=== PATIENT | male | born 1970 | race Caucasian/White ===

== ENCOUNTER 2016-10-10 14:50 | Emergency (ER) | payer BC ==
--- NOTE | 2016-10-10 15:26 | ED ---
General Adult HPI - General Chief complaint: Chest Pain Stated complaint: Chest Pain Time Seen by Provider: 10/10/16 14:59 Source: patient, RN notes reviewed Mode of arrival: ambulatory Limitations: no limitations - History of Present Illness Initial comments: Patient 46-year-old male who presents emergency room today with a chief complaint of left-sided rib pain. Patient does admit that he was playing softball 2 days ago and collided with another player. He states he collided on the left side of his ribs. He states he did feel some pain to the area but was able to continue to play. He states the last 2 days he's noticed that patient be worse with certain movements. He gives examples that when he coughs or sneezes that the pain is increased. States worse with movements. Patient does admit that he went to his family doctor about this today. States that they repeated an EKG and sent him here for evaluation. Patient denies any other complaints. Patient denies any recent fever, chills, shortness of breath, chest pain, back pain, abdominal pain, nausea or vomiting, numbness or tingling, dysuria or hematuria, constipation or diarrhea, headaches or visual changes, or any other complaints. - Related Data Previous Rx's Medication Instructions Recorded Hydrocodone/Acetaminophen [Warren 1 each PO Q6HR PRN #20 tab 10/10/16 5-325] Allergies Allergy/AdvReac Type Severity Reaction Status Date / Time morphine Allergy Nausea & Verified 10/10/16 15:36 Vomiting Penicillins Allergy Unknown Verified 10/10/16 15:36 Childhood Review of Systems ROS Statement: Those systems with pertinent positive or pertinent negative responses have been documented in the HPI. ROS Other: All systems not noted in ROS Statement are negative. Past Medical History Past Medical History: No Reported History History of Any Multi-Drug Resistant Organisms: None Reported Past Surgical History: Hernia Repair, Orthopedic Surgery Additional Past Surgical History / Comment(s): left shoulder, knee elbow Past Psychological History: No Psychological Hx Reported Smoking Status: Never smoker Past Alcohol Use History: None Reported Past Drug Use History: None Reported General Exam - General Exam Comments Initial Comments: General: The patient is awake and alert, in no distress, and does not appear acutely ill. Eye: Pupils are equal, round and reactive to light, extra-ocular movements are intact. No nystagmus. There is normal conjunctiva bilaterally. No signs of icterus. Ears, nose, mouth and throat: There are moist mucous membranes and no oral lesions. Neck: The neck is supple, there is no tenderness or JVD. Cardiovascular: There is a regular rate and rhythm. No murmur, rub or gallop is appreciated. Respiratory: Lungs are clear to auscultation, respirations are non-labored, breath sounds are equal. No wheezes, stridor, rales, or rhonchi. Gastrointestinal: Soft, non-distended, non-tender abdomen without masses or organomegaly noted. There is no rebound or guarding present. No CVA tenderness. Bowel sounds are unremarkable. Musculoskeletal: Normal ROM. No bruising or swelling. He is point tender to palpation in the left anterior lateral ribs. This does reproduce his pain. Strength 5/5. Sensation intact. Pulses equal bilaterally 2+. Neurological: A&O x 3. CN II-XII intact, There are no obvious motor or sensory deficits. Coordination appears grossly intact. Speech is normal. Skin: Skin is warm and dry and no rashes or lesions are noted. Psychiatric: Cooperative, appropriate mood & affect, normal judgment. Limitations: no limitations Course Vital Signs 10/10/16 14:52 Temperature 98.2 F Pulse Rate 65 Respiratory 18 Rate Blood Pressure 140/84 O2 Sat by Pulse 95 Oximetry EKG Findings - EKG Comments: EKG Findings:: EKG performed here today at 1509: A 12-lead EKG was performed and interpreted by me as showing the following: Rate is 63, and rhythm is normal sinus. There are normal QRS complexes and normal R-wave progression. ST segments have no elevation or depression, and SD segments appear normal. Previous EKG from outpatient was also reviewed and also an old EKG on 2010 from outpatient facility was also reviewed both showing normal sinus rhythm. All EKGs were reviewed with attending physician Medical Decision Making - Medical Decision Making X-rays reviewed and are negative. The emergency room. Patient's pain reproducible on palpation. Does admit to injury 2 days ago. Patient's EKG shows no changes. Patient will be discharged and advised to follow-up with family doctor. Advised return for any other concerns. Disposition Clinical Impression: Contusion of rib on left side Disposition: HOME SELF-CARE Condition: Good Instructions: Rib Contusion (ED) Additional Instructions: Please use medication as discussed. Please follow-up with family doctor in the next 2 days of symptoms have not improved. Please return to emergency room if the symptoms increase or worsen or for any other concerns. Prescriptions: Hydrocodone/Acetaminophen [Warren 5-325] 1 each PO Q6HR PRN #20 tab PRN Reason: Pain Referrals: Guille Heath MD [Primary Care Provider] - 1-2 days Time of Disposition: 16:07
--- NOTE | 2016-10-10 15:38 | XR ---
EXAMINATION TYPE: XR ribs LT w pa chest xray DATE OF EXAM: 10/10/2016 COMPARISON: October 18, 2009 HISTORY: Pain TECHNIQUE: Single view of the chest 4 views of the ribs are submitted. FINDINGS: The lungs are clear. There is no evidence for pneumothorax. No evidence for focal contusion. Mediastinal structures are midline. Evaluation of the ribs fails to demonstrate evidence for displaced rib fracture or secondary sign of rib fracture. Incidental focal eventration left hemidiaphragm. Scoliotic curvature of the lumbar spine convex to th e left. Postoperative changes left shoulder. IMPRESSION: 1. No significant abnormality seen. No displaced rib fracture identified.
[2016-10-10 16:20] VITALS: BP 137/86; PULSE 90; RESP 14; TEMP 97.9
== END 2016-10-10 16:20 | disposition home or self-care (01) ==
LOC: EC 14:50
DX: S20.212A Contusion of left front wall of thorax, initial encounter (principal); Z88.0 Allergy status to penicillin; Z88.5 Allergy status to narcotic agent; W51.XXXA Accidental striking against or bumped into by another person, initial encounter; Y93.64 Activity, baseball
CPT/HCPCS: 93005; 99284

== ENCOUNTER 2017-09-26 23:20 | Observation (INO) | payer BC ==
[2017-09-26] MEDS ORDERED: ONDANSETRON 4 MG/2 ML VIAL IVP STA (23:31)
[2017-09-26] MEDS ORDERED: NITROGLYCERIN OINT 1 INCH/GM PACKET TOPICAL STA (23:31)
[2017-09-26] MEDS ORDERED: HYDROmorphone 0.5 MG/0.5 ML SYRINGE IVP STA ×2 (23:31→23:58)
--- NOTE | 2017-09-26 23:35 | ED ---
General Adult HPI - General Chief complaint: Chest Pain Stated complaint: chest pain Time Seen by Provider: 09/26/17 23:20 Source: patient, RN notes reviewed Mode of arrival: wheelchair Limitations: no limitations - History of Present Illness Initial comments: Is a 47-year-old male presents emergency Department with no significant past medical history. Patient comes in complaining of epigastric and chest pressure. Patient states it started 2 hours prior to arrival and has gotten progressively worse. Patient states it radiates to his back. Patient states he became nauseous and vomited times one but did not seem to relieve the pain. Patient states pressing in the epigastric right upper quadrant is very tender. Patient denies any drinking. Patient denies any drug use. Patient denies headache patient denies numbness weakness. Patient denies lightheadedness dizziness or syncopal episode. - Related Data Home Medications Medication Instructions Recorded Confirmed Calcium Carbonate [Tums] 1,000 mg PO ONCE PRN 09/26/17 09/26/17 Allergies Allergy/AdvReac Type Severity Reaction Status Date / Time morphine Allergy Nausea & Verified 09/26/17 23:42 Vomiting Penicillins Allergy Unknown Verified 09/26/17 23:42 Childhood Review of Systems ROS Statement: Those systems with pertinent positive or pertinent negative responses have been documented in the HPI. ROS Other: All systems not noted in ROS Statement are negative. Past Medical History Past Medical History: No Reported History History of Any Multi-Drug Resistant Organisms: None Reported Past Surgical History: Hernia Repair, Orthopedic Surgery Additional Past Surgical History / Comment(s): left shoulder, knee elbow Past Psychological History: No Psychological Hx Reported Smoking Status: Never smoker Past Alcohol Use History: None Reported Past Drug Use History: None Reported General Exam - General Exam Comments Initial Comments: GENERAL: Patient is well-developed and well-nourished. Patient is nontoxic and well- hydrated and is in moderate distress. ENT: Neck is soft and supple. No significant lymphadenopathy is noted. Oropharynx is clear. Moist mucous membranes. Neck has full range of motion without eliciting any pain. EYES: The sclera were anicteric and conjunctiva were pink and moist. Extraocular movements were intact and pupils were equal round and reactive to light. Eyelids were unremarkable. PULMONARY: Unlabored respirations. Good breath sounds bilaterally. No audible rales rhonchi or wheezing was noted. CARDIOVASCULAR: There is a regular rate and rhythm without any murmurs gallops or rubs. ABDOMEN: Epigastric and right upper quadrant is very tender to palpation.. No palpable organomegaly was noted. There is no palpable pulsatile mass. SKIN: Skin is clear with no lesions or rashes and otherwise unremarkable. NEUROLOGIC: Patient is alert and oriented x3. Cranial nerves II through XII are grossly intact. Motor and sensory are also intact. Normal speech, volume and content. Symmetrical smile. MUSCULOSKELETAL: Normal extremities with adequate strength and full range of motion. No lower extremity swelling or edema. No calf tenderness. LYMPHATICS: No significant lymphadenopathy is noted PSYCHIATRIC: Normal psychiatric evaluation. Normal interpersonal interactions appears functionally intact in deals appropriately with others. No signs of depression. No signs of anxiety. Limitations: no limitations Course Vital Signs 09/26/17 09/26/17 09/27/17 23:22 23:53 00:02 Temperature 97.9 F Pulse Rate 82 56 L Pulse Rate [ 59 L Forensic Identification Specialist ] Respiratory 18 19 Rate Blood Pressure 136/92 126/85 O2 Sat by Pulse 98 96 Oximetry 09/27/17 01:20 Temperature Pulse Rate 70 Pulse Rate [ Forensic Identification Specialist ] Respiratory 19 Rate Blood Pressure 123/78 O2 Sat by Pulse 94 L Oximetry Medical Decision Making - Medical Decision Making EKG shows normal sinus rhythm at 61 bpm NE interval is 170 QRS is 96 Q-T intervals 44 QTC is 46. Patient's EKG shows no ST segment elevation or depression or T-wave abnormalities noted. EKG is compared to old EKG no acute changes noted. CAT scan of the abdomen shows an elevated left diaphragm as well as a very enlarged stomach. A previous CAT scan showed a possible arcuate ligament syndrome. Patient was still uncomfortable after the Dilaudid but did feel a little better. I ordered an NG tube. I spoke with Dr. Nelson she agreed to admit the patient I admitted the patient I continued pain medicine and nausea medicine on the floor - Lab Data Result diagrams: 09/26/17 23:39 09/26/17 23:39 Lab Results 09/26/17 09/26/17 09/26/17 Range/Units 23:39 23:39 23:39 WBC 9.7 (3.8-10.6) k/uL RBC 5.33 (4.30-5.90) m/uL Hgb 15.1 (13.0-17.5) gm/dL Hct 46.0 (39.0-53.0) % MCV 86.3 (80.0-100.0) fL MCH 28.4 (25.0-35.0) pg MCHC 32.9 (31.0-37.0) g/dL RDW 13.6 (11.5-15.5) % Plt Count 214 (150-450) k/uL Neutrophils % 62 % Lymphocytes % 28 % Monocytes % 6 % Eosinophils % 1 % Basophils % 0 % Neutrophils # 6.0 (1.3-7.7) k/uL Lymphocytes # 2.7 (1.0-4.8) k/uL Monocytes # 0.6 (0-1.0) k/uL Eosinophils # 0.1 (0-0.7) k/uL Basophils # 0.0 (0-0.2) k/uL PT (9.0-12.0) sec INR (<1.2) APTT (22.0-30.0) sec Sodium 141 (137-145) mmol/L Potassium 4.2 (3.5-5.1) mmol/L Chloride 105 (98-107) mmol/L Carbon Dioxide 23 (22-30) mmol/L Anion Gap 13 mmol/L BUN 20 (9-20) mg/dL Creatinine 1.10 (0.66-1.25) mg/dL Est GFR (CKD-EPI)AfAm >90 (>60 ml/min/1.73 sqM) Est GFR (CKD-EPI)NonAf 80 (>60 ml/min/1.73 sqM) Glucose 109 H (74-99) mg/dL Calcium 10.0 (8.4-10.2) mg/dL Magnesium 2.2 (1.6-2.3) mg/dL Total Bilirubin 0.3 (0.2-1.3) mg/dL AST 28 (17-59) U/L ALT 37 (21-72) U/L Alkaline Phosphatase 54 (38-126) U/L Total Creatine Kinase 450 H (55-170) U/L CK-MB (CK-2) 1.2 (0.0-2.4) ng/mL CK-MB (CK-2) Rel Index 0.3 Troponin I <0.012 (0.000-0.034) ng/mL Total Protein 7.2 (6.3-8.2) g/dL Albumin 4.6 (3.5-5.0) g/dL Amylase 50 (30-110) U/L Lipase 152 (23-300) U/L 09/26/17 Range/Units 23:39 WBC (3.8-10.6) k/uL RBC (4.30-5.90) m/uL Hgb (13.0-17.5) gm/dL Hct (39.0-53.0) % MCV (80.0-100.0) fL MCH (25.0-35.0) pg MCHC (31.0-37.0) g/dL RDW (11.5-15.5) % Plt Count (150-450) k/uL Neutrophils % % Lymphocytes % % Monocytes % % Eosinophils % % Basophils % % Neutrophils # (1.3-7.7) k/uL Lymphocytes # (1.0-4.8) k/uL Monocytes # (0-1.0) k/uL Eosinophils # (0-0.7) k/uL Basophils # (0-0.2) k/uL PT 9.8 (9.0-12.0) sec INR 1.0 (<1.2) APTT 20.9 L (22.0-30.0) sec Sodium (137-145) mmol/L Potassium (3.5-5.1) mmol/L Chloride (98-107) mmol/L Carbon Dioxide (22-30) mmol/L Anion Gap mmol/L BUN (9-20) mg/dL Creatinine (0.66-1.25) mg/dL Est GFR (CKD-EPI)AfAm (>60 ml/min/1.73 sqM) Est GFR (CKD-EPI)NonAf (>60 ml/min/1.73 sqM) Glucose (74-99) mg/dL Calcium (8.4-10.2) mg/dL Magnesium (1.6-2.3) mg/dL Total Bilirubin (0.2-1.3) mg/dL AST (17-59) U/L ALT (21-72) U/L Alkaline Phosphatase (38-126) U/L Total Creatine Kinase (55-170) U/L CK-MB (CK-2) (0.0-2.4) ng/mL CK-MB (CK-2) Rel Index Troponin I (0.000-0.034) ng/mL Total Protein (6.3-8.2) g/dL Albumin (3.5-5.0) g/dL Amylase (30-110) U/L Lipase (23-300) U/L Disposition Clinical Impression: Abdominal pain Disposition: ADMITTED IP TO THIS HOSP Referrals: Guille Heath MD [Primary Care Provider] - 1-2 days Time of Disposition: 02:14
[2017-09-26 23:54] LABS: Basophils % (A) 0 %; Eosinophils # (A) 0.1 k/uL (0-0.7); Eosinophils % (A) 1 %; HGB 15.1 gm/dL (13.0-17.5); Lymphocytes # (A) 2.7 k/uL (1.0-4.8); Lymphocytes % (A) 28 %; MCH 28.4 pg (25.0-35.0); MCHC 32.9 g/dL (31.0-37.0); MCV 86.3 fL (80.0-100.0); Mean Platelet Volume 7.7; Monocytes # (A) 0.6 k/uL (0-1.0); Monocytes % (A) 6 %; Neutrophils % (A) 62 %; Platelet Count 214 k/uL (150-450); RBC 5.33 m/uL (4.30-5.90); RDW 13.6 % (11.5-15.5); WBC 9.7 k/uL (3.8-10.6)
[2017-09-27 00:11] LABS: Prothrombin Time 9.8 sec (9.0-12.0)
[2017-09-27 00:14] LABS: Partial Thromboplastin Time 20.9 sec (22.0-30.0)
--- NOTE | 2017-09-27 00:15 | XR ---
EXAMINATION TYPE: XR chest 2V DATE OF EXAM: 09/27/2017 COMPARISON: NONE HISTORY: Chest pain TECHNIQUE: Frontal and lateral views of the chest are obtained. FINDINGS: Heart and mediastinum are within normal limits. Lungs are clear. Diaphragm is normal. Ther e are chest leads. Bony thorax is intact. IMPRESSION: No active cardiac pulmonary disease. Normal heart.
[2017-09-27 00:36] LABS: Creatine Kinase 450 U/L (55-170)
[2017-09-27 00:38] LABS: ALT 37 U/L (21-72); AST 28 U/L (17-59); Albumin 4.6 g/dL (3.5-5.0); Alkaline Phosphatase 54 U/L (38-126); Amylase 50 U/L (30-110); Anion Gap 13 mmol/L; Blood Urea Nitrogen 20 mg/dL (9-20); Carbon Dioxide 23 mmol/L (22-30); Chloride 105 mmol/L (98-107); Glucose 109 mg/dL (74-99); Lipase 152 U/L (23-300); Magnesium 2.2 mg/dL (1.6-2.3); Potassium 4.2 mmol/L (3.5-5.1); Sodium 141 mmol/L (137-145); Total Bilirubin 0.3 mg/dL (0.2-1.3); Total Protein 7.2 g/dL (6.3-8.2)
[2017-09-27 00:48] LABS: Creatine Kinase MB 1.2 ng/mL (0.0-2.4); Troponin I <0.012 ng/mL (0.000-0.034)
[2017-09-27] MEDS ORDERED: HYDROmorphone 0.5 MG/0.5 ML SYRINGE IVP STA (00:55)
--- NOTE | 2017-09-27 01:25 | CT ---
EXAMINATION TYPE: CT ChestAbdPelvis w con DATE OF EXAM: 09/27/2017 COMPARISON: None HISTORY: Chest pain CT DLP: 1661.10 mGycm Automated exposure control for dose reduction was used. CONTRAST: CT scan of the chest, abdomen and pelvis is performed without Oral Contrast and with IV Contrast, pat ient injected with 100 mL of Isovue 300. FINDINGS: There is some patchy mild atelectasis at the lung bases. There is no pleural effusion. Heart size is normal. There is elevated left diaphragm that could relate to partial paralysis. Stomach is large. Liver spleen pancreas gallbladder appear normal. Bile ducts are not dilated. There is no adrenal mass. Kidneys show satisfactory contrast opacification. There is no hydronephrosi s. There is no retroperitoneal adenopathy. There is no ascites. There is no sign of free air. Bladder distends smoothly. I see no intestinal wall thickening. There are no dilated loops. Appendix appears normal. There is no evidence of a pelvic mass. I see no hernia. The thoracic and lumbar spine appear intact. I see no compression fracture. IMPRESSION: Minimal atelectasis at the lung bases. Elevated left diaphragm could relate to partial pa ralysis. There is a large stomach. I do not suspect however a gastric outlet obstruction. Normal appe ndix. I do not see a cause for chest pain.
[2017-09-27] MEDS ORDERED: SODIUM CHLORIDE 0.9% 1,000 ML IV ONE (02:14)
[2017-09-27] MEDS ORDERED: ONDANSETRON 4 MG/2 ML VIAL IVP PRN (02:16)
[2017-09-27] MEDS ORDERED: HYDROmorphone 0.5 MG/0.5 ML SYRINGE IVP PRN (02:16)
--- NOTE | 2017-09-27 02:51 | XR ---
EXAMINATION TYPE: XR chest 1V DATE OF EXAM: 09/27/2017 COMPARISON: Today HISTORY: NG tube placement TECHNIQUE: Single frontal view of the chest is obtained. FINDINGS: There is elevated left diaphragm with gas-filled stomach. Nasogastric tube has tip probabl y looped in the gastric fundus. There is no heart failure. Lungs are clear of consolidation. IMPRESSION: Nasogastric tube appears in good position.
[2017-09-27 03:45] VITALS: BMI 38.4
--- NOTE | 2017-09-27 12:27 | P.GSHP ---
History of Present Illness H&P Date: 09/27/17 Chief Complaint: Epigastric and chest pain The patient is a 47-year-old man who presented to the emergency room with complains of chest pain and pressure. It start to couple of hours prior to admission. It got progressively worse so he was evaluated. He was found to have a very distended stomach. An NG tube was placed. His pain is better today. In January 2017 seen him in the office with concerns of possible recurrent inguinal hernia. He had had a CAT scan which did not show a recurrent inguinal hernia. 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 His says his abdomen is usually tender. Appetite is been good. He has not lost weight. Bowel movements are good. - Review of Systems All systems: negative - Constitutional Constitutional: Denies anorexia, Denies fever, Denies poor appetite, Denies weight gain, Denies weight loss Past Medical History Past Medical History: No Reported History History of Any Multi-Drug Resistant Organisms: None Reported Past Surgical History: Hernia Repair, Orthopedic Surgery Additional Past Surgical History / Comment(s): left shoulder, right knee, left elbow Past Anesthesia/Blood Transfusion Reactions: No Reported Reaction Past Psychological History: No Psychological Hx Reported Smoking Status: Never smoker Past Alcohol Use History: None Reported Past Drug Use History: None Reported - Past Family History Mother Family Medical History: No Reported History Father Family Medical History: No Reported History Medications and Allergies Home Medications Medication Instructions Recorded Confirmed Type Calcium Carbonate [Tums] 1,000 mg PO ONCE PRN 09/26/17 09/26/17 History Allergies Allergy/AdvReac Type Severity Reaction Status Date / Time morphine Allergy Nausea & Verified 09/26/17 23:42 Vomiting Penicillins Allergy Unknown Verified 09/26/17 23:42 Childhood Surgical - Exam Osteopathic Statement: *. No significant issues noted on an osteopathic structural exam other than those noted in the History and Physical/Consult. Vital Signs Temp Pulse Resp BP Pulse Ox 97.9 F 82 18 136/92 98 09/26/17 23:22 09/26/17 23:22 09/26/17 23:22 09/26/17 23:22 09/26/17 23:22 - General well developed, well nourished, no distress - Eyes normal ocular movement - ENT normal mucosa - Neck trachea midline, no lymphadectomy - Respiratory normal expansion, normal respiratory effort, clear to auscultation - Cardiovascular Rhythm: regular - Abdomen Abdomen: soft, non tender, tender (Epigastric), bowel sounds, no guarding, no rigid, no rebound, no distended - Psychiatric oriented to time, oriented to person, oriented to place, speech is normal, memory intact, other Results - Labs 09/26/17 23:39 09/26/17 23:39 Abnormal Lab Results - Last 24 Hours (Table) 09/26/17 09/26/17 09/26/17 Range/Units 23:39 23:39 23:39 APTT 20.9 L (22.0-30.0) sec Glucose 109 H (74-99) mg/dL Total Creatine Kinase 450 H (55-170) U/L Diabetes panel 09/26/17 Range/Units 23:39 Sodium 141 (137-145) mmol/L Potassium 4.2 (3.5-5.1) mmol/L Chloride 105 (98-107) mmol/L Carbon Dioxide 23 (22-30) mmol/L BUN 20 (9-20) mg/dL Creatinine 1.10 (0.66-1.25) mg/dL Glucose 109 H (74-99) mg/dL Calcium 10.0 (8.4-10.2) mg/dL AST 28 (17-59) U/L ALT 37 (21-72) U/L Alkaline Phosphatase 54 (38-126) U/L Total Protein 7.2 (6.3-8.2) g/dL Albumin 4.6 (3.5-5.0) g/dL Calcium panel 09/26/17 Range/Units 23:39 Calcium 10.0 (8.4-10.2) mg/dL Albumin 4.6 (3.5-5.0) g/dL Pituitary panel 09/26/17 Range/Units 23:39 Sodium 141 (137-145) mmol/L Potassium 4.2 (3.5-5.1) mmol/L Chloride 105 (98-107) mmol/L Carbon Dioxide 23 (22-30) mmol/L BUN 20 (9-20) mg/dL Creatinine 1.10 (0.66-1.25) mg/dL Glucose 109 H (74-99) mg/dL Calcium 10.0 (8.4-10.2) mg/dL Adrenal panel 09/26/17 Range/Units 23:39 Sodium 141 (137-145) mmol/L Potassium 4.2 (3.5-5.1) mmol/L Chloride 105 (98-107) mmol/L Carbon Dioxide 23 (22-30) mmol/L BUN 20 (9-20) mg/dL Creatinine 1.10 (0.66-1.25) mg/dL Glucose 109 H (74-99) mg/dL Calcium 10.0 (8.4-10.2) mg/dL Total Bilirubin 0.3 (0.2-1.3) mg/dL AST 28 (17-59) U/L ALT 37 (21-72) U/L Alkaline Phosphatase 54 (38-126) U/L Total Protein 7.2 (6.3-8.2) g/dL Albumin 4.6 (3.5-5.0) g/dL - Imaging CT scan - abdomen: report reviewed, image reviewed Assessment and Plan (1) Acute distention of stomach Current Visit: Yes Status: Acute Code(s): K31.0 - ACUTE DILATATION OF STOMACH SNOMED Code(s): 585001117 (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 It doesn't cause any pain, nausea, vomiting, it will be discontinued and he start on a clear liquid diet. We'll order a formal vascular surgery consult. I didn't formally To the phone and recommendation had been for evaluation at [facility]. Not sure why that evaluation was not carried out. He is fairly tender in the epigastrium so he could be having ulceration or something causing gastroparesis. The CT didn't suggest any sort of gastric outlet obstruction. Orders will be written. Further recommendations to follow.
--- NOTE | 2017-09-27 15:08 | CONS ---
CONSULTATION This is a 47-year-old pleasant gentleman who came with abdominal pain and chest pressure. Patient has no history of diarrhea or vomiting. Patient had NG tube placed, with which he feels better. Patient has positive bowel sounds. 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 Patient was evaluated by Dr. Coleman and patient will be made an appointment at the [facility] for further evaluation. SURGICAL HISTORY: Patient had an umbilical hernia and inguinal hernia done in the past. No history of diabetes, hypertension. PHYSICAL EXAMINATION: Patient was seen in his room. VITAL SIGNS: Stable. NECK: Supple. Trachea central. CHEST: Clear on auscultation. ABDOMEN: Soft. No peritoneal signs noted. Femoral pulses are present. IMPRESSION: 1. Stomach distention. No evidence of a gastric outlet obstruction. 2. 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 Patient has been evaluated by Dr. Coleman and will be making a recommendation for followup at [facility]. MMODL / IJN: [id number] /
[2017-09-27] MEDS: PANTOPRAZOLE 40 MG/10 ML VIAL IVP SCH (17:15)
[2017-09-27 20:56] VITALS: RESP 16
[2017-09-27] MEDS ORDERED: ACETAMINOPHEN TAB 325 MG TAB PO PRN (21:18)
[2017-09-28] MEDS: PANTOPRAZOLE 40 MG/10 ML VIAL IVP SCH (09:15)
--- NOTE | 2017-09-28 11:37 | P.PN ---
Subjective Progress Note Date: 09/28/17 The patient's tolerating a clear liquid diet. No nausea or, vomiting, chest or abdominal pain. He is hungry and wants to go home. Objective - Vital Signs Vital signs: Vital Signs Temp 98.8 F 09/28/17 00:00 Pulse 65 09/28/17 00:00 Resp 16 09/28/17 00:00 BP 122/64 09/28/17 00:00 Pulse Ox 96 09/28/17 00:00 Intake & Output 09/27/17 09/28/17 09/28/17 18:59 06:59 18:59 Intake Total 240 400 826 Balance 240 400 826 Weight 118 kg Intake: Oral 240 826 Other 400 Other: # Voids 1 3 - Constitutional General appearance: Present: cooperative, no acute distress - Gastrointestinal General gastrointestinal: Present: normal bowel sounds, soft. Absent: distended , tenderness - Labs CBC & Chem 7: 09/26/17 23:39 09/26/17 23:39 Assessment and Plan (1) Acute distention of stomach Current Visit: Yes Status: Acute Code(s): K31.0 - ACUTE DILATATION OF STOMACH SNOMED Code(s): 108185894 (2) Celiac artery aneurysm Current Visit: Yes Status: Acute Code(s): I72.8 - ANEURYSM OF OTHER SPECIFIED ARTERIES SNOMED Code(s): 596442444 (3) Abdominal pain Current Visit: Yes Status: Acute Code(s): R10.9 - UNSPECIFIED ABDOMINAL PAIN SNOMED Code(s): 16510588 (4) Chest pain Current Visit: Yes Status: Acute Code(s): R07.9 - CHEST PAIN, UNSPECIFIED SNOMED Code(s): 85691403 Plan: The diet will be advanced. He is able to tolerate his lunch we'll discharge him home. He is anxious to be discharged sensors family visiting from out of state. We'll have him follow a bland diet. He'll need an outpatient EGD. Also need to follow-up at [facility] regarding his celiac artery aneurysm. He understands this.
[2017-09-28 14:12] VITALS: BP 125/76; PULSE 78; TEMP 99.1
--- NOTE | 2017-09-28 19:48 | P.DS ---
Providers Date of admission: 09/27/17 02:14 Expected date of discharge: 09/28/17 Attending physician: Fanny Coleman Consults: 09/27/17 12:18 Consult Physician Routine Consulting Provider: Alfred Keen Consult Reason/Comments: Celiac artery aneurysm Do you want consulting provider notified?: Yes Primary care physician: Guille Heath - Discharge Diagnosis(es) (1) Acute distention of stomach Current Visit: Yes Status: Acute (2) Celiac artery aneurysm Current Visit: Yes Status: Acute (3) Abdominal pain Current Visit: Yes Status: Acute (4) Chest pain Current Visit: Yes Status: Acute Hospital Course: Patient developed abdominal pain and distention. He came into the emergency room and was worked up. An NG tube was placed. His pain quickly improved. He was unable to have the NG tube clamped. He was started on a clear liquid diet. He was advanced and was able to tolerate a diet. 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 Patient Condition at Discharge: Good Plan - Discharge Summary Discharge Rx Participant: No New Discharge Prescriptions: No Action Calcium Carbonate [Tums] 1,000 mg PO ONCE PRN PRN Reason: Chest Pain Discharge Medication List Calcium Carbonate [Tums] 1,000 mg PO ONCE PRN 09/26/17 [History] Follow up Appointment(s)/Referral(s): Fanny Coleman DO [Doctor of Osteopathic Medicine] - (Call the office to schedule an EGD) Guille Heath MD [Primary Care Provider] - 1-2 days Patient Instructions/Handouts: Soft Diet (DC) Discharge Disposition: HOME SELF-CARE
== END 2017-09-28 15:00 | disposition home or self-care (01) ==
LOC: EC 23:20 → INTOOBSV 09-27 02:14 → 6SEL 09-27 02:14 → 3SUR 09-27 21:36
PROVIDERS: ADMIT Surgery; ATTEND Surgery
DX: K31.0 Acute dilatation of stomach (principal); I72.8 Aneurysm of other specified arteries; R07.89 Other chest pain; Z88.5 Allergy status to narcotic agent; Z88.0 Allergy status to penicillin
CPT/HCPCS: 99285 ×2; 96374 ×2; 96376 ×4; 96361 ×4; 96375; 43753; 36415; 93005; 80053; 82150; 82550; 82553; 83690; 83735; 84484 ×2; 85025; 85610; 85730; 71045; 71046; 71260; 74177; G0378 ×3; J2405; C9113 ×2; J1170 ×2; Q9967

== ENCOUNTER 2017-10-01 08:04 | Day surgery (SDC) | payer BC ==
[~2017-10-01 08:04] MED LIST: LACTATED RINGERS 1,000 ML IV SCH
--- NOTE | 2017-10-01 08:19 | P.GSHP ---
History of Present Illness H&P Date: 10/01/17 Chief Complaint: Abdominal pain and episodic vomiting The patient is a 47-year-old man that presented to the emergency room with abdominal pain and distention. His CT showed significantly dilated stomach. It improved with NG decompression and he was able to be started on a diet. He presents for EGD to rule out any significant gastritis. - Review of Systems All systems: negative Past Medical History Past Medical History: No Reported History Additional Past Medical History / Comment(s): Celiac artery aneurysm History of Any Multi-Drug Resistant Organisms: None Reported Past Surgical History: Hernia Repair, Orthopedic Surgery Additional Past Surgical History / Comment(s): left shoulder, right knee, left elbow Past Anesthesia/Blood Transfusion Reactions: No Reported Reaction Past Psychological History: No Psychological Hx Reported Smoking Status: Never smoker Past Alcohol Use History: None Reported Past Drug Use History: None Reported - Past Family History Mother Family Medical History: No Reported History Father Family Medical History: No Reported History Medications and Allergies Home Medications Medication Instructions Recorded Confirmed Type Calcium Carbonate [Tums] 1,000 mg PO ONCE PRN 09/26/17 09/26/17 History Allergies Allergy/AdvReac Type Severity Reaction Status Date / Time morphine Allergy Nausea & Verified 09/26/17 23:42 Vomiting Penicillins Allergy Unknown Verified 09/26/17 23:42 Childhood Surgical - Exam Osteopathic Statement: *. No significant issues noted on an osteopathic structural exam other than those noted in the History and Physical/Consult. - General well developed, well nourished, no distress - Eyes normal ocular movement - Neck trachea midline - Respiratory normal expansion, normal respiratory effort - Cardiovascular Rhythm: regular - Abdomen Abdomen: soft, non tender Results - Imaging CT scan - abdomen: report reviewed (From admission over the weekend) Assessment and Plan (1) Abdominal pain Current Visit: No Status: Acute Code(s): R10.9 - UNSPECIFIED ABDOMINAL PAIN SNOMED Code(s): 05013230 (2) Acute distention of stomach Current Visit: No Status: Acute Code(s): K31.0 - ACUTE DILATATION OF STOMACH SNOMED Code(s): 340640386 (3) Celiac artery aneurysm Current Visit: No Status: Acute Code(s): I72.8 - ANEURYSM OF OTHER SPECIFIED ARTERIES SNOMED Code(s): 216065803 (4) Chest pain Current Visit: No Status: Acute Code(s): R07.9 - CHEST PAIN, UNSPECIFIED SNOMED Code(s): 91049339 Plan: EGD. The procedures and complications have been discussed with the patient. Questions were encouraged and answered.
[2017-10-01 08:23] VITALS: TEMP 97.8
[2017-10-01] MEDS ORDERED: LIDOCAINE 1% INJ 10MG/ML (20 ML MDV) ONE (08:30)
[2017-10-01] MEDS ORDERED: PROPOFOL 10 MG/ML 20 ML VIAL IV ONE (08:30)
[2017-10-01] MEDS ORDERED: NALOXONE 0.4 MG/ML 1 ML VIAL IV PRN (08:42)
[2017-10-01 09:04] VITALS: RESP 16
[2017-10-01 09:18] VITALS: BP 107/70; PULSE 66
--- NOTE | 2017-10-01 09:40 | P.OP ---
Date of Procedure: 10/01/17 Preoperative Diagnosis: Abdominal pain, chest pain, history of recent gastric distention Postoperative Diagnosis: Abdominal pain, gastric distention, esophagitis, gastritis Procedure(s) Performed: EGD with biopsy Anesthesia: MAC Surgeon: Fanny Coleman Pathology: other (Esophagus, antrum) Condition: stable Disposition: PACU Indications for Procedure: Resented with abdominal pain and gastric distention. Description of Procedure: Patient's taken to the endoscopy suite were gastroscope is passed brought to the third and fourth portions of the duodenum. The pharynx is unremarkable. The upper esophagus is without evidence of esophagitis or mass lesion. The distal 1-2 cm shows evidence of esophagitis with erythema and some superficial mucosal erosion. Cold biopsies were obtained. No significant hiatal hernia was seen. He has gastritis in the antrum with very superficial linear erosion. He has some bile reflux into the stomach. No evidence of pyloric/gastric colon obstruction. The stomach, pylorus, duodenum are otherwise without evidence of polyp, mass lesion, the mucosal abnormality. Cold biopsy was obtained in the antrum. He tolerated the procedure without difficulty and is taken recovery room in satisfactory condition. We'll start him on omeprazole twice a day. He'll need to follow-up at [facility] regarding a celiac artery aneurysm Plan - Discharge Summary New Discharge Prescriptions: New Omeprazole 20 mg PO AC-BRKFST #90 tablet. No Action Calcium Carbonate [Tums] 1,000 mg PO ONCE PRN PRN Reason: Chest Pain Discharge Medication List Calcium Carbonate [Tums] 1,000 mg PO ONCE PRN 09/26/17 [History] Omeprazole 20 mg PO AC-BRKFST #90 tablet. 10/01/17 [Rx] Activity/Diet/Wound Care/Special Instructions: No driving today.
== END 2017-10-01 09:27 | disposition home or self-care (01) ==
LOC: ORWHC2ENDO 08:04
PROVIDERS: ATTEND Surgery
DX: K29.50 Unspecified chronic gastritis without bleeding (principal); K31.0 Acute dilatation of stomach; K21.0 Gastro-esophageal reflux disease with esophagitis; I72.8 Aneurysm of other specified arteries; Z88.5 Allergy status to narcotic agent; Z88.0 Allergy status to penicillin
CPT/HCPCS: 88305; 43239; J2001; J2704

== ENCOUNTER 2018-09-23 04:02 | Inpatient (IN) | payer BC ==
--- NOTE | 2018-09-23 05:06 | ED ---
Chest Pain HPI - General Source: patient Mode of arrival: wheelchair Limitations: no limitations - History of Present Illness MD Complaint: other (Epigastric pain) -: hour(s) (4) Onset: during rest Pain Location: epigastric Pain Radiation: none Severity: severe Quality: sharp Consistency: constant Improves With: leaning forward Worsens With: supine, palpation Treatments Prior to Arrival: none <Horacio Murillo - Last Filed: 09/23/18 05:12> <Gray Solano - Last Filed: 09/23/18 09:30> - General Chief Complaint: Chest Pain Stated Complaint: chest pain Time Seen by Provider: 09/23/18 04:32 - Related Data Home Medications Medication Instructions Recorded Confirmed Calcium Carbonate [Tums] 1,000 mg PO ONCE PRN 09/26/17 09/26/17 Previous Rx's Medication Instructions Recorded Omeprazole 20 mg PO AC-BRKFST #90 tablet. 10/01/17 Allergies Allergy/AdvReac Type Severity Reaction Status Date / Time morphine Allergy Nausea & Verified 09/26/17 23:42 Vomiting Penicillins Allergy Unknown Verified 09/26/17 23:42 Childhood Review of Systems ROS Other: All systems not noted in ROS Statement are negative. Constitutional: Denies: fever, chills Respiratory: Denies: cough, dyspnea Cardiovascular: Denies: chest pain, palpitations, edema, syncope Gastrointestinal: Reports: as per HPI, abdominal pain. Denies: nausea, vomiting, diarrhea, constipation Genitourinary: Denies: dysuria, hematuria, testicular pain, testicular mass Musculoskeletal: Denies: back pain Skin: Denies: rash Neurological: Denies: headache, weakness <Horacio Murillo - Last Filed: 09/23/18 05:12> ROS Other: All systems not noted in ROS Statement are negative. <Gray Solano - Last Filed: 09/23/18 09:30> ROS Statement: Those systems with pertinent positive or pertinent negative responses have been documented in the HPI. EKG Findings - EKG Results: EKG: interpreted by CHRISTIANO RAMÍREZ, sinus rhythm (Rate 68 bpm), normal axis, normal QRS, normal ST/T - [place], Pacemaker, Normal: Normal tracing: normal tracing <Horacio Murillo - Last Filed: 09/23/18 05:12> Past Medical History Past Medical History: No Reported History Additional Past Medical History / Comment(s): Celiac artery aneurysm History of Any Multi-Drug Resistant Organisms: None Reported Past Surgical History: Hernia Repair, Orthopedic Surgery Additional Past Surgical History / Comment(s): left shoulder, right knee, left elbow Past Anesthesia/Blood Transfusion Reactions: No Reported Reaction Past Psychological History: No Psychological Hx Reported Smoking Status: Never smoker Past Alcohol Use History: None Reported Past Drug Use History: None Reported - Past Family History Mother Family Medical History: No Reported History Father Family Medical History: No Reported History <Horacio Murillo - Last Filed: 09/23/18 05:12> General Exam Limitations: no limitations General appearance: alert, in no apparent distress Head exam: Present: atraumatic, normocephalic Eye exam: Present: normal appearance. Absent: scleral icterus, conjunctival injection ENT exam: Present: normal oropharynx Respiratory exam: Present: normal lung sounds bilaterally. Absent: respiratory distress, wheezes, rales, rhonchi, stridor, chest wall tenderness Cardiovascular Exam: Present: regular rate, normal rhythm, normal heart sounds. Absent: systolic murmur, diastolic murmur, rubs, gallop GI/Abdominal exam: Present: soft, tenderness, guarding. Absent: distended, rebound, rigid, mass, pulsatile mass, hernia Extremities exam: Present: normal inspection, normal capillary refill. Absent: pedal edema, calf tenderness Back exam: Present: normal inspection. Absent: CVA tenderness (R), CVA tenderness (L) Neurological exam: Present: alert Skin exam: Present: warm, dry, intact, normal color. Absent: rash <Horacio Murillo - Last Filed: 09/23/18 05:12> Course <Gray Solano - Last Filed: 09/23/18 09:30> Vital Signs 09/23/18 09/23/18 09/23/18 04:06 06:43 07:25 Temperature 97.7 F Pulse Rate 64 94 67 Respiratory 18 18 18 Rate Blood Pressure 153/91 127/91 136/91 O2 Sat by Pulse 97 94 L 96 Oximetry - Reevaluation(s) Reevaluation #1: 09/23/18 09:14 Computed tomography scan of the abdomen pelvis: Wall thickening of the colon which may be secondary to under distention or nonspecific colitis. Ultrasound of the gallbladder shows cholelithiasis. Positive Guillen sign and dilated common bile duct with borderline thickening of the gallbladder wall. Gallbladder wall 0.3 cm. Common bile duct 0.7 cm. 09/23/18 09:29 Patient reevaluated by myself, Dr. Solano. Patient resting comfortably in bed with states his discomfort is starting to return. Patient states his discomfort is in the epigastric region. Abdomen is soft with mild to moderate tenderness right upper quadrant and epigastric region. Patient and family updated on results and plan. Patient has previously seen Dr. Davis. Case was discussed in detail with Dr. Davis, who will admit. (Gray Solano) Disposition <Horacio Murillo - Last Filed: 09/23/18 05:12> Is patient prescribed a controlled substance at d/c from ED?: No Decision Time: 09:30 <Gray Solano - Last Filed: 09/23/18 09:30> Clinical Impression: Cholecystitis Disposition: ADMITTED IP TO THIS HOSP Referrals: Guille Heath MD [Primary Care Provider] - 1-2 days
[2018-09-23] MEDS ORDERED: fentaNYL (PF) 50 MCG/ML 2 ML AMP IVP STA ×2 (05:11→07:02)
[2018-09-23] MEDS ORDERED: ONDANSETRON 4 MG/2 ML VIAL IVP STA (05:42)
[2018-09-23 05:49] LABS: Basophils % (A) 0 %; Eosinophils # (A) 0.1 k/uL (0-0.7); Eosinophils % (A) 1 %; HGB 15.1 gm/dL (13.0-17.5); Lymphocytes # (A) 1.1 k/uL (1.0-4.8); Lymphocytes % (A) 10 %; MCH 28.3 pg (25.0-35.0); MCHC 32.8 g/dL (31.0-37.0); MCV 86.4 fL (80.0-100.0); Mean Platelet Volume 7.6; Monocytes # (A) 0.4 k/uL (0-1.0); Monocytes % (A) 3 %; Neutrophils # (A) 9.4 k/uL (1.3-7.7); Neutrophils % (A) 84 %; Platelet Count 229 k/uL (150-450); RBC 5.32 m/uL (4.30-5.90); RDW 13.2 % (11.5-15.5); WBC 11.1 k/uL (3.8-10.6)
[2018-09-23 05:57] LABS: ALT 41 U/L (21-72); AST 35 U/L (17-59); African American GFR (CKD) >90 (>60 ml/min/1.73 sqM); Albumin 4.8 g/dL (3.5-5.0); Alkaline Phosphatase 56 U/L (38-126); Amylase 48 U/L (30-110); Anion Gap 10 mmol/L; Blood Urea Nitrogen 15 mg/dL (9-20); Calcium 9.9 mg/dL (8.4-10.2); Carbon Dioxide 24 mmol/L (22-30); Chloride 105 mmol/L (98-107); Glucose 130 mg/dL (74-99); Lipase 149 U/L (23-300); Magnesium 2.2 mg/dL (1.6-2.3); Sodium 139 mmol/L (137-145); Total Bilirubin 0.5 mg/dL (0.2-1.3); Total Protein 7.6 g/dL (6.3-8.2)
[2018-09-23 06:11] LABS: Potassium 4.8 mmol/L (3.5-5.1)
--- NOTE | 2018-09-23 06:21 | CT ---
EXAM: CT Abdomen and Pelvis Without Intravenous Contrast CLINICAL HISTORY: Pain TECHNIQUE: Axial computed tomography images of the abdomen and pelvis without intravenous contrast. CTDI is 0.242, 0.242, 17.2 mGy and DLP is 1068.90 mGy-cm. This CT exam was performed using one or more of the following dose reduction techniques: automated exposure control, adjustment of the mA and/or kV according to patient size, and/or use of iterative reconstruction technique. COMPARISON: No relevant prior studies available. FINDINGS: Lung bases: Dependent atelectasis. ABDOMEN: Liver: Unremarkable. Gallbladder and bile ducts: Unremarkable. Pancreas: Unremarkable. Spleen: Unremarkable. Adrenals: Unremarkable. Kidneys and ureters: Unremarkable. Stomach and bowel: Noninflamed colonic diverticulosis. Apparent wall thickening of the colon which may be secondary to under distention versus a nonspecific colitis. PELVIS: Appendix: Appendix is unremarkable. Bladder: Unremarkable. Reproductive: Unremarkable as visualized. ABDOMEN and PELVIS: Intraperitoneal space: Unremarkable. Bones/joints: No acute osseous abnormality. Scoliosis of the spine. No dislocation. Soft tissues: Unremarkable. Vasculature: Unremarkable. No abdominal aortic aneurysm. Lymph nodes: Unremarkable. IMPRESSION: Apparent wall thickening of the colon which may be secondary to under distention versus a nonspecific colitis.
[2018-09-23 06:34] LABS: D-Dimer 0.19 mg/L FEU (<0.60); INR 0.9 (<1.2); Partial Thromboplastin Time 23.2 sec (22.0-30.0); Prothrombin Time 9.8 sec (9.0-12.0)
--- NOTE | 2018-09-23 08:20 | US ---
EXAMINATION TYPE: US abdomen limited DATE OF EXAM: 09/23/2018 COMPARISON: CT 2019 CLINICAL HISTORY: Pain, attention RUQ. Abdomen pain x 1 to 2 years, got worse last night, N/V EXAM MEASUREMENTS: Liver Length: 20.8 cm Gallbladder Wall: 0.3 cm CBD: 0.7 cm Right Kidney: 11.0 x 6.2 x 6.3 cm Pancreas: obscured by overlying midline bowel gas Liver: There is increased echogenicity of the hepatic parenchyma with diminished visualization of th e portal triads most commonly relating to hepatic steatosis and limiting evaluation for underlying he patic masses. Gallbladder: cholelithiasis, wall borderline thickened at 0.3cm Evidence for sonographic Guillen's sign: yes CBD: visualized portion appears dilated, limited by overlying bowel gas Right Kidney: 0.5cm echogenic focus inferior pole IMPRESSION: 1. Cholelithiasis, positive sonographic Guillen sign and dilated common bile duct with borderline thi ckened gallbladder wall. Findings are most compatible with acute cholecystitis. Correlate with serum laboratory values. 2. Nonobstructing 5 mm right renal calculus. 3. Echogenicity of the hepatic parenchyma is most commonly related to hepatic steatosis appearing mil d in degree. Correlate with liver function tests.
[2018-09-23] MEDS ORDERED: HYDROmorphone 1 MG/ML 1 ML SYRINGE IVP STA (09:28)
[2018-09-23] MEDS ORDERED: HYDROmorphone 1 MG/ML 1 ML SYRINGE IVP PRN (09:30)
[2018-09-23] MEDS ORDERED: HYDROmorphone 0.5 MG/0.5 ML SYRINGE IVP PRN (09:30)
[2018-09-23] MEDS ORDERED: NALOXONE 0.4 MG/ML 1 ML VIAL IV PRN (09:30)
--- NOTE | 2018-09-23 11:32 | P.GSHP ---
History of Present Illness H&P Date: 09/23/18 Chief Complaint: Abdominal pain The patient is a 48-year-old man who was woken up at 2 AM with abdominal pain. He had some nausea and vomiting. The pain persisted so he came into the emergency department. Workup showed cholelithiasis with some early gallbladder wall thickening. He doesn't feel much better now. Denies any fatty food dyscrasias. Denies any jaundice, tea-colored urine, acholic stool, blood in the stool or dark tarry stool. He did have a previous episode of abdominal pain about a year ago. He also has a known celiac artery aneurysm. Recently had a follow-up in the aneurysm has been stable. Plans are to monitor it. - Review of Systems All systems: negative Past Medical History Past Medical History: No Reported History Additional Past Medical History / Comment(s): Celiac artery aneurysm History of Any Multi-Drug Resistant Organisms: None Reported Past Surgical History: Hernia Repair, Orthopedic Surgery Additional Past Surgical History / Comment(s): left shoulder, right knee, left elbow Past Anesthesia/Blood Transfusion Reactions: No Reported Reaction Past Psychological History: No Psychological Hx Reported Smoking Status: Never smoker Past Alcohol Use History: None Reported Past Drug Use History: None Reported - Past Family History Mother Family Medical History: No Reported History Father Family Medical History: No Reported History Medications and Allergies Home Medications Medication Instructions Recorded Confirmed Type No Known Home Medications 09/23/18 09/23/18 History Allergies Allergy/AdvReac Type Severity Reaction Status Date / Time morphine Allergy Nausea & Verified 09/23/18 09:55 Vomiting Penicillins Allergy Unknown Verified 09/23/18 09:55 Childhood Surgical - Exam Osteopathic Statement: *. No significant issues noted on an osteopathic structural exam other than those noted in the History and Physical/Consult. Vital Signs Temp Pulse Resp BP Pulse Ox 97.7 F 64 18 153/91 97 09/23/18 04:06 09/23/18 04:06 09/23/18 04:06 09/23/18 04:06 09/23/18 04:06 - General well developed, well nourished - Eyes normal ocular movement, no icteric - ENT normal mucosa - Neck trachea midline, no lymphadectomy - Respiratory normal respiratory effort, clear to auscultation - Cardiovascular Rhythm: regular Abnormal Heart Sounds: no systolic murmur - Abdomen Abdomen: soft, tender (Mild upper quadrant), no guarding, no rigid, no rebound Hernia: no umbilical - Psychiatric oriented to time, oriented to person, oriented to place, speech is normal, memory intact Results - Labs 09/23/18 05:38 09/23/18 05:38 Abnormal Lab Results - Last 24 Hours (Table) 09/23/18 09/23/18 Range/Units 05:38 05:38 WBC 11.1 H (3.8-10.6) k/uL Neutrophils # 9.4 H (1.3-7.7) k/uL Glucose 130 H (74-99) mg/dL Diabetes panel 09/23/18 Range/Units 05:38 Sodium 139 (137-145) mmol/L Potassium 4.8 (3.5-5.1) mmol/L Chloride 105 (98-107) mmol/L Carbon Dioxide 24 (22-30) mmol/L BUN 15 (9-20) mg/dL Creatinine 0.98 (0.66-1.25) mg/dL Glucose 130 H (74-99) mg/dL Calcium 9.9 (8.4-10.2) mg/dL AST 35 (17-59) U/L ALT 41 (21-72) U/L Alkaline Phosphatase 56 (38-126) U/L Total Protein 7.6 (6.3-8.2) g/dL Albumin 4.8 (3.5-5.0) g/dL Calcium panel 09/23/18 Range/Units 05:38 Calcium 9.9 (8.4-10.2) mg/dL Albumin 4.8 (3.5-5.0) g/dL Pituitary panel 09/23/18 Range/Units 05:38 Sodium 139 (137-145) mmol/L Potassium 4.8 (3.5-5.1) mmol/L Chloride 105 (98-107) mmol/L Carbon Dioxide 24 (22-30) mmol/L BUN 15 (9-20) mg/dL Creatinine 0.98 (0.66-1.25) mg/dL Glucose 130 H (74-99) mg/dL Calcium 9.9 (8.4-10.2) mg/dL Adrenal panel 09/23/18 Range/Units 05:38 Sodium 139 (137-145) mmol/L Potassium 4.8 (3.5-5.1) mmol/L Chloride 105 (98-107) mmol/L Carbon Dioxide 24 (22-30) mmol/L BUN 15 (9-20) mg/dL Creatinine 0.98 (0.66-1.25) mg/dL Glucose 130 H (74-99) mg/dL Calcium 9.9 (8.4-10.2) mg/dL Total Bilirubin 0.5 (0.2-1.3) mg/dL AST 35 (17-59) U/L ALT 41 (21-72) U/L Alkaline Phosphatase 56 (38-126) U/L Total Protein 7.6 (6.3-8.2) g/dL Albumin 4.8 (3.5-5.0) g/dL - Imaging CT scan - abdomen: report reviewed, image reviewed (I personally reviewed the computed tomography scan of the abdomen the radiologist. The celiac artery aneu rysm is stable in size) Assessment and Plan (1) Cholelithiasis and acute cholecystitis without obstruction Current Visit: Yes Status: Acute Code(s): K80.00 - CALCULUS OF GALLBLADDER W ACUTE CHOLECYST W/O OBSTRUCTION SNOMED Code(s): 627103130 (2) Celiac artery aneurysm Current Visit: No Status: Acute Code(s): I72.8 - ANEURYSM OF OTHER SPECIFIED ARTERIES SNOMED Code(s): 341381443 Plan: The patient is not significantly improved. There is no evidence of choledocholithiasis. I recommended proceeding with laparoscopic cholecystectomy. The procedure, risks, complications were discussed. Questions were encouraged and answered. I will do that for him today.
[2018-09-23] MEDS ORDERED: IV FLUID CONTINUATION 1,000 ML IV ONE (13:18)
[2018-09-23] MEDS ORDERED: MIDAZOLAM (PF) 2 MG/2 ML VIAL IVP ONE (13:32)
[2018-09-23] MEDS ORDERED: HYDROmorphone (PF) 1 MG/ML ONE (14:01)
[2018-09-23] MEDS ORDERED: fentaNYL (PF) 50 MCG/ML 2 ML AMP ONE (14:01)
[2018-09-23] MEDS ORDERED: PROPOFOL 10 MG/ML 20 ML VIAL IV ONE (14:01)
[2018-09-23] MEDS ORDERED: NEOSTIGMINE 1 MG/ML 10 ML VIAL ONE (14:01)
[2018-09-23] MEDS ORDERED: GLYCOPYRROLATE 0.2 MG/ML 2 ML VIAL ONE (14:01)
[2018-09-23] MEDS ORDERED: KETOROLAC 30 MG/ML 1 ML VIAL ONE (14:01)
[2018-09-23] MEDS ORDERED: MIDAZOLAM 2 MG/2 ML VIAL ONE (14:01)
[2018-09-23] MEDS ORDERED: SUCCINYLCHOLINE CHLORIDE 100 MG/5 ML SYR IV ONE (14:01)
[2018-09-23] MEDS ORDERED: LIDOCAINE 1% INJ 10MG/ML (20 ML MDV) ONE (14:01)
[2018-09-23] MEDS ORDERED: ROCURONIUM BROMIDE 10 MG/ML 10 ML VIAL IV ONE (14:01)
[2018-09-23] MEDS ORDERED: SODIUM CHLORIDE 0.9% 50 ML with ceFAZolin 2,000 MG IV ONE ×2 (14:12)
[2018-09-23] MEDS ORDERED: LIDOCAINE 1%-EPI 1:100,000 20 ML VIAL SQ ONE (14:23)
[2018-09-23] MEDS ORDERED: BUPIVACAINE (PF) 0.25% 30 ML VIAL SQ ONE (14:23)
[2018-09-23] MEDS ORDERED: LACTATED RINGERS 1,000 ML IV ONE (14:52)
[2018-09-23] MEDS ORDERED: HYDROcodone/APAP 5-325MG 1 EACH TAB PO PRN ×2 (15:04)
[2018-09-23] MEDS ORDERED: METOCLOPRAMIDE 5 MG/ML 2 ML VIAL IVP PRN (15:04)
--- NOTE | 2018-09-23 15:04 | P.OP ---
Date of Procedure: 09/23/18 Preoperative Diagnosis: Cholelithiasis, cholecystitis Postoperative Diagnosis: Cholelithiasis, cholecystitis Procedure(s) Performed: Laparoscopic cholecystectomy Anesthesia: MILLY Surgeon: Fanny Coleman Estimated Blood Loss (ml): 10 Pathology: other (Gallbladder) Condition: stable Disposition: PACU Indications for Procedure: The patient presented with acute abdominal pain. Ultrasound showed evidence of cholelithiasis and gallbladder wall thickening with a positive Guillen sign Description of Procedure: The patient's taken the operative suite where he is prepped and draped in the usual sterile manner under general endotracheal anesthetic. Due to previous umbilical hernia repair with mesh, a incision was made above the umbilicus. The fascia was incised. The peritoneum was grasped and incised. A finger sweep was carried out. A balloon trocar was inserted and pneumoperitoneum was established with CO2 gas. The abdominal and pelvic contents were examined. There is some adhesions of the omentum to the mesh at the umbilicus. There is also adhesions in the right lower quadrant over the inguinal canal. The gallbladder was edematous with some discoloration. Otherwise the liver, diaphragm, large and small bowel were normal where they were seen. Sites were chosen for accessory trochars needs are placed through small skin incisions. The gallbladder was aspirated of about 30 mL's of clear bile. The Castro's pouch was unable to be dissected free. There was a stone impacted in the Castro's pouch. This was milked back into the gallbladder. The cystic artery and cystic duct were then dissected free. They are triply clipped and cut. The cystic duct is then further secured using 0 PDS Endoloop. The gallbladder is dissected free from the liver bed using electrocautery. Small bleeding points are controlled with electrocautery. The gallbladder is removed through the umbilical port site. The liver bed is reexamined and noted to be hemostatic. The excess irrigant is suctioned out. The pneumoperitoneum was released. The trochars were removed. The fascia at the umbilical port site was closed with 0 Vicryl. The skin incisions were closed with 4-0 Vicryl in a subcuticular manner. Steri-Strips and dressings were applied. He tolerated the procedure without difficulty and was taken recovery room in satisfactory condition. According to or personnel, all counts are correct.
[2018-09-23] MEDS ORDERED: KETOROLAC 30 MG/ML 1 ML VIAL IVP ONE (15:19)
[2018-09-23] MEDS: D5-0.45% NACL WITH KCL 20MEQ/L 1,000 ML IV SCH ×2 (17:12→23:26)
[2018-09-24 07:32] VITALS: BP 139/83; PULSE 70; RESP 16; TEMP 98.9
[2018-09-24 08:11] LABS: Basophils % (A) 0 %; Eosinophils # (A) 0.1 k/uL (0-0.7); Eosinophils % (A) 1 %; HCT 43.7 % (39.0-53.0); HGB 14.1 gm/dL (13.0-17.5); Lymphocytes # (A) 1.5 k/uL (1.0-4.8); Lymphocytes % (A) 14 %; MCH 28.5 pg (25.0-35.0); MCHC 32.3 g/dL (31.0-37.0); MCV 88.4 fL (80.0-100.0); Mean Platelet Volume 7.4; Monocytes # (A) 0.7 k/uL (0-1.0); Monocytes % (A) 6 %; Neutrophils # (A) 8.6 k/uL (1.3-7.7); Neutrophils % (A) 78 %; Platelet Count 214 k/uL (150-450); RBC 4.94 m/uL (4.30-5.90); RDW 13.4 % (11.5-15.5)
[2018-09-24 08:31] LABS: ALT 45 U/L (21-72); AST 38 U/L (17-59); African American GFR (CKD) >90 (>60 ml/min/1.73 sqM); Alkaline Phosphatase 56 U/L (38-126); Anion Gap 9 mmol/L; Blood Urea Nitrogen 14 mg/dL (9-20); Carbon Dioxide 29 mmol/L (22-30); Chloride 103 mmol/L (98-107); Glucose 101 mg/dL (74-99); Potassium 4.7 mmol/L (3.5-5.1); Sodium 141 mmol/L (137-145); Total Bilirubin 0.6 mg/dL (0.2-1.3); Total Protein 6.5 g/dL (6.3-8.2)
[2018-09-24] MEDS ORDERED: PANTOPRAZOLE 40 MG/10 ML VIAL IV SCH (09:00)
--- NOTE | 2018-09-24 11:51 | P.DS ---
Providers Date of admission: 09/23/18 09:30 Expected date of discharge: 09/24/18 Attending physician: Fanny Coleman Primary care physician: Guille Heath - Discharge Diagnosis(es) (1) Cholelithiasis and acute cholecystitis without obstruction Current Visit: Yes Status: Acute (2) Celiac artery aneurysm Current Visit: No Status: Acute Hospital Course: The patient presented to the emergency department with complaints of abdominal pain. Workup showed cholelithiasis with suggestive of acute cholecystitis. He was admitted. Taken to the OR where he underwent a laparoscopic cholecystectomy. There was evidence of gallbladder distention and early cholecystitis. Postoperatively he was monitored overnight. By postop day 1 he was having mild incisional pain, tolerating a diet, no nausea or vomiting. He was felt to be stable for discharge Patient Condition at Discharge: Good Plan - Discharge Summary New Discharge Prescriptions: New HYDROcodone/APAP 5-325MG [[place] 5-325] 1 - 2 tab PO Q4H PRN #15 tab PRN Reason: Pain Discharge Medication List HYDROcodone/APAP 5-325MG [[place] 5-325] 1 - 2 tab PO Q4H PRN #15 tab 09/24/18 [Rx] Follow up Appointment(s)/Referral(s): Fanny Coleman DO [Doctor of Osteopathic Medicine] - 10/08/18 9:15 am Guille Heath MD [Primary Care Provider] - 10/01/18 9:30 am Patient Instructions/Handouts: Low Fat Diet (DC), Laparoscopic Cholecystectomy (DC) Activity/Diet/Wound Care/Special Instructions: You may remove the dressings and shower Friday. No tub bath or swimming for 1 week. No driving while taking pain medications. No softball for 2 weeks. Low fat diet. Call if questions or concerns. Discharge Disposition: HOME SELF-CARE
--- NOTE | 2018-09-29 13:49 | CDI ---
Documentation Clarification Form Date: 09/29/18 From: Samantha Jones Phone: If questions call Nan Sanchez @ [phone], Hours-8:30 am & 5 pm M- F Admit Date: 09/23/2018 9:30:00 AM Patient Name: Francisco Snow Visit Number: [id number] Discharge Date: 09/24/2018 12:45:00 PM ATTENTION: The Clinical Documentation Specialists (CDI) and [facility] Coding Staff appreciate your assistance in clarifying documentation. Please respond to the clarification below the line at the bottom and electronically sign. The CDI & [facility] Coding staff will review the response and follow-up if needed. Please note: Queries are made part of the Legal Health Record. If you have any questions, please contact the author of this message via ITS. Dr. Fanny Coleman The final diagnosis of the pathology report states: Acute and chronic cholecystitis with cholelithiasis and cholesterolosis. 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 Yes No Other (please specify) yes Unable to determine MTDD
== END 2018-09-24 12:45 | disposition home or self-care (01) | DRG 419 ==
LOC: EC 04:02 → 4SSUR 09:30
PROVIDERS: ADMIT Surgery; ATTEND Surgery
PROC: 0FT44ZZ Resection of Gallbladder, Percutaneous Endoscopic Approach (ICD-10-PCS; principal; 2018-09-23 11:35)
DX: K80.12 Calculus of gallbladder with acute and chronic cholecystitis without obstruction (principal); I72.8 Aneurysm of other specified arteries; Z79.899 Other long term (current) drug therapy; Z98.890 Other specified postprocedural states; Z88.5 Allergy status to narcotic agent; Z88.0 Allergy status to penicillin
CPT/HCPCS: 36415; 74176; 76705; 80053; 82150; 83690; 83735; 84484; 85025; 85379; 85610; 85730; 88304; 93005; 96374; 96375; 99285

== ENCOUNTER 2024-08-31 15:52 | Emergency (ER) | payer BC ==
[2024-08-31 16:43] LABS: Basophils # (A) 0.05 10*3/uL (0.00-0.10); Basophils % (A) 0.6 %; Eosinophils # (A) 0.08 10*3/uL (0.04-0.35); Eosinophils % (A) 0.9 %; HCT 45.3 % (39.6-50.0); HGB 15.4 g/dL (13.0-17.0); Lymphocytes # (A) 2.06 10*3/uL (0.90-5.00); Lymphocytes % (A) 24.4 %; MCV 85.3 fL (80.0-97.0); Mean Platelet Volume 11.6 fL (9.5-12.2); Monocytes % (A) 7.1 %; Neutrophils # (A) 5.63 10*3/uL (1.80-7.70); Neutrophils % (A) 66.8 %; RBC 5.31 10*6/uL (4.40-5.60); WBC 8.44 10*3/uL (4.50-10.00)
--- NOTE | 2024-08-31 16:44 | ED ---
General Adult HPI - General Source: patient, RN notes reviewed Mode of arrival: ambulatory Limitations: no limitations <Tra Casillas - Last Filed: 08/31/24 16:41> <Ron Cleary - Last Filed: 08/31/24 20:28> - General Chief complaint: Abdominal Pain Stated complaint: L sided abd pain Time Seen by Provider: 08/31/24 16:07 - History of Present Illness Initial comments: Quick note: This is a 54-year-old male with history of multiple hernias presenting for left upper abdominal pain (11/24) x 3 days. Patient states he felt a "pop" in his left upper abdomen 1 month ago with intermittent pain since that time that has started to worsen, especially with movement and ambulation. Patient endorses associated shortness of breath. Patient endorses history of x 3 right abdominal hernias and 1 umbilical hernia. States he was diagnosed with a small AAA years ago that has not progressed, stating it has not been rechecked for at least 3 years. (Tra Casillas) Dictation was produced using [employer] dictation software. please excuse any grammatical, word or spelling errors. Chief Complaint: 54-year-old male sent to the ER for abdominal pain History of Present Illness: Patient is a 54-year-old male sent in from urgent care for abdominal pain. Patient states that over the last 2 days his chronic abdominal pain got worse. States it all started about a month ago when he thought that maybe he had bruised his ribs after doing something at work. Slowly he ports that his pain started to increase in intensity and frequency. He had x-ray at urgent care today and was found to have diaphragmatic hernia. No denies any nausea or vomiting. Patient refusing pain medications. The ROS documented in this emergency department record has been reviewed and confirmed by me. Those systems with pertinent positive or negative responses have been documented in the HPI. All other systems are other negative and/or noncontributory. (Ron Cleary) - Related Data Previous Rx's Medication Instructions Recorded HYDROcodone/APAP 5-325MG [[place] 1 - 2 tab PO Q4H PRN #15 tab 09/24/18 5-325] HYDROcodone/APAP 5-325MG [[place] 1 tab PO Q6HR PRN 3 Days #12 tab 08/31/24 5325] Allergies Allergy/AdvReac Type Severity Reaction Status Date / Time morphine Allergy Nausea & Verified 08/31/24 15:56 Vomiting Penicillins Allergy Unknown Verified 08/31/24 15:56 Childhood Review of Systems ROS Other: All systems not noted in ROS Statement are negative. <Tra Casillas - Last Filed: 08/31/24 16:41> ROS Other: All systems not noted in ROS Statement are negative. <Ron Cleary - Last Filed: 08/31/24 20:28> ROS Statement: Those systems with pertinent positive or pertinent negative responses have been documented in the HPI. Past Medical History Past Medical History: No Reported History Additional Past Medical History / Comment(s): Celiac artery aneurysm History of Any Multi-Drug Resistant Organisms: None Reported Past Surgical History: Cholecystectomy, Hernia Repair, Orthopedic Surgery Additional Past Surgical History / Comment(s): left shoulder, right knee, left elbow Past Anesthesia/Blood Transfusion Reactions: No Reported Reaction Past Psychological History: No Psychological Hx Reported Smoking Status: Never smoker Past Alcohol Use History: None Reported Past Drug Use History: None Reported - Past Family History Mother Family Medical History: No Reported History Father Family Medical History: No Reported History <Tra Casillas - Last Filed: 08/31/24 16:41> General Exam Limitations: no limitations <Tra Casillas - Last Filed: 08/31/24 16:41> <Ron Cleary - Last Filed: 08/31/24 20:28> - General Exam Comments Initial Comments: Visual Physical Exam Vital signs reviewed General: Well-appearing, nontoxic, no acute distress. Head: Normocephalic, atraumatic Eyes: PERRLA, EOMI ENT: Airway patent Chest: Nonlabored breathing Skin: No visual rash, normal skin tone Neuro: Alert and oriented 3 Musculoskeletal: No gross abnormalities (Tra Casillas) PHYSICAL EXAM: General Impression: Alert and oriented x3, not in acute distress HEENT: Normocephalic atraumatic, extra-ocular movements intact, pupils equal and reactive to light bilaterally, mucous membranes moist. Cardiovascular: Heart regular rate and rhythm Chest: Able to complete full sentences, no retractions, no tachypnea Abdomen: abdomen soft, non-tender, non-distended, no organomegaly Musculoskeletal: Pulses present and equal in all extremities, no peripheral edema Motor: no focal deficits noted Neurological: CN II-XII grossly intact, no focal motor or sensory deficits noted Skin: Intact with no visualized rashes Psych: Normal affect and mood (Ron Cleary) Course Vital Signs 08/31/24 08/31/24 15:53 18:26 Temperature 98.2 F 98.3 F Pulse Rate 85 77 Respiratory 22 20 Rate Blood Pressure 210/100 153/110 O2 Sat by Pulse 94 L 95 Oximetry Medical Decision Making <Tra Casillas - Last Filed: 08/31/24 16:41> - Lab Data Result diagrams: 08/31/24 15:59 08/31/24 15:59 <Ron Cleary - Last Filed: 08/31/24 20:28> - Medical Decision Making I completed the quick note portion of this chart signed MARK Ledbetter (Tra Casillas) Was pt. sent in by a medical professional or institution (ANNI Ronquillo, WELL SERVICES OPERATOR, urgent care, hospital, or penitentiary...) When possible be specific @ -M Did you speak to anyone other than the patient for history (EMS, parent, family, police, friend...)? What history was obtained from this source @ -No Did you review nursing and triage notes (agree or disagree)? Why? @ -I reviewed and agree with nursing and triage notes Were old charts reviewed (outside hosp., previous admission, EMS record, old EKG, old radiological studies, urgent care reports/EKG's, penitentiary records)? Report findings @ -Urgent care documents reviewed Differential Diagnosis (chest pain, altered mental status, abdominal pain women, abdominal pain men, vaginal bleeding, musculoskeletal, weakness, fever, dyspnea, syncope, headache, dizziness, GI bleed, back pain, seizure, CVA, palpatations, mental health)? @ -Differential Abdominal Pain Men: Appendicitis, cholecystitis, diverticulosis, ischemic bowel, pancreatitis, hepatitis, UTI, gastroenteritis, AAA, incarcerated hernia, bowel obstruction, constipation, inflammatory bowel, hepatitis, peptic ulcer disease, splenic infarction, perforated viscus, testicular torsion, this is not meant to be an all-inclusive list EKG interpreted by me (3pts min.). @ -None done X-rays interpreted by me (1pt min.). @ -None done CT interpreted by me (1pt min.). @ -CT shows umbilical hernia. Also shows diaphragmatic hernia U/S interpreted by me (1pt. min.). @ -None done What testing was considered but not performed or refused? (CT, X-rays, U/S, labs)? Why? @ -None What meds were considered but not given or refused? Why? @ -None Was smoking cessation discussed for >3mins.? @ -No Were there social determinants of health that impacted care today? How? (Homelessness, low income, unemployed, alcoholism, drug addiction, transportation, low edu. Level, literacy, decrease access to med. care, half-way, rehab)? @ -No Was there de-escalation of care discussed even if they declined (Discuss DNR or withdrawal of care, Hospice)? DNR status @ -No What co-morbidities impacted this encounter? (DM, HTN, Smoking, COPD, CAD, Cancer, CVA, ARF, Chemo, Hep., AIDS, mental health diagnosis, sleep apnea, morbid obesity)? @ -None Was patient admitted / discharged? Hospital course, mention meds given and route, prescriptions, significant lab abnormalities, going to OR and other pertinent info. @ -54-year-old male with abdominal pain. Diagnosed with diaphragmatic hernia on x-ray at urgent care. Vital signs stable. Patient does have tender abdomen. CT shows diaphragmatic hernia along with umbilical hernia. Labs unremarkable. Case discussed with Dr. Rollins states that he will follow up with him in the office. Likely will need surgical planning with cardiothoracic surgery involvement. Patient told of the plan. Will follow-up. Return precautions discussed. Did you discuss the management of the patient with other professionals (professionals i.e. , PA, WELL SERVICES OPERATOR, lab, RT, psych nurse, social media strategist, porcelain buildup assistant, teacher, transit police officer, casework specialist)? Give summary @ -See above Was critical care preformed (if so, how long)? @ -No Undiagnosed new problem with uncertain prognosis? @ -No Drug Therapy requiring intensive monitoring for toxicity (Heparin, Nitro, Insulin, Cardizem)? @ -No Were any procedures done? @ -No Diagnosis/symptom? Acute, or Chronic, or Acute on Chronic? Uncomplicated (without systemic symptoms) or Complicated (systemic symptoms)? @ -Diaphragmatic hernia Side effects of treatment? @ -No Exacerbation, Progression, or Severe Exacerbation? @ -No Poses a threat to life or bodily function? How? (Chest pain, [place], [place], pneumonia, PE, COPD, DKA, ARF, appy, cholecystitis, CVA, Diverticulitis, Homicidal, Suicidal, threat to staff... and all critical care pts) @ -yes (Ron Cleary) - Lab Data Lab Results 08/31/24 08/31/24 08/31/24 Range/Units 15:59 15:59 15:59 WBC 8.44 (4.50-10.00) 10*3/uL RBC 5.31 (4.40-5.60) 10*6/uL Hgb 15.4 (13.0-17.0) g/dL Hct 45.3 (39.6-50.0) % MCV 85.3 (80.0-97.0) fL MCH 29.0 (27.0-32.0) pg MCHC 34.0 (32.0-37.0) g/dL Plt Count 180 (140-440) 10*3/uL MPV 11.6 (9.5-12.2) fL Immature Gran % (Auto) 0.2 % Neutrophils % 66.8 % Lymphocytes % 24.4 % Monocytes % 7.1 % Eosinophils % 0.9 % Basophils % 0.6 % Immature Gran # 0.02 (0.00-0.04) 10*3/uL Neutrophils # 5.63 (1.80-7.70) 10*3/uL Lymphocytes # 2.06 (0.90-5.00) 10*3/uL Monocytes # 0.60 (0.20-1.00) 10*3/uL Eosinophils # 0.08 (0.04-0.35) 10*3/uL Basophils # 0.05 (0.00-0.10) 10*3/uL Manual Slide Review Performed Immature Plt Fraction 10.0 H (1.1-6.1) % Sodium 138 (137-145) mmol/L Potassium 4.6 (3.5-5.1) mmol/L Chloride 105 (98-107) mmol/L Carbon Dioxide 24 (22-30) mmol/L Anion Gap 9 mmol/L BUN 20 (9-20) mg/dL Creatinine 1.03 (0.66-1.25) mg/dL Est GFR (CKD-EPI)AfAm >90 (>60 ml/min/1.73 sqM) Est GFR (CKD-EPI)NonAf 82 (>60 ml/min/1.73 sqM) Glucose 81 (74-99) mg/dL Plasma Lactic Acid Manuelito 0.9 (0.7-2.0) mmol/L Calcium 9.8 (8.4-10.2) mg/dL Total Bilirubin 0.8 (0.2-1.3) mg/dL AST 33 (17-59) U/L ALT 29 (4-49) U/L Alkaline Phosphatase 87 (38-126) U/L Total Protein 7.6 (6.3-8.2) g/dL Albumin 4.9 (3.5-5.0) g/dL Amylase 40 (30-110) U/L Lipase 173 (23-300) U/L Urine Color Urine Appearance (Clear) Urine pH (5.0-8.0) Ur Specific [place] (1.001-1.035) Urine Protein (Negative) Urine Glucose (UA) (Negative) Urine Ketones (Negative) Urine Blood (Negative) Urine Nitrite (Negative) Urine Bilirubin (Negative) Urine Urobilinogen (<2.0) mg/dL Ur Leukocyte Esterase (Negative) 08/31/24 Range/Units 18:38 WBC (4.50-10.00) 10*3/uL RBC (4.40-5.60) 10*6/uL Hgb (13.0-17.0) g/dL Hct (39.6-50.0) % MCV (80.0-97.0) fL MCH (27.0-32.0) pg MCHC (32.0-37.0) g/dL Plt Count (140-440) 10*3/uL MPV (9.5-12.2) fL Immature Gran % (Auto) % Neutrophils % % Lymphocytes % % Monocytes % % Eosinophils % % Basophils % % Immature Gran # (0.00-0.04) 10*3/uL Neutrophils # (1.80-7.70) 10*3/uL Lymphocytes # (0.90-5.00) 10*3/uL Monocytes # (0.20-1.00) 10*3/uL Eosinophils # (0.04-0.35) 10*3/uL Basophils # (0.00-0.10) 10*3/uL Manual Slide Review Immature Plt Fraction (1.1-6.1) % Sodium (137-145) mmol/L Potassium (3.5-5.1) mmol/L Chloride (98-107) mmol/L Carbon Dioxide (22-30) mmol/L Anion Gap mmol/L BUN (9-20) mg/dL Creatinine (0.66-1.25) mg/dL Est GFR (CKD-EPI)AfAm (>60 ml/min/1.73 sqM) Est GFR (CKD-EPI)NonAf (>60 ml/min/1.73 sqM) Glucose (74-99) mg/dL Plasma Lactic Acid Manuelito (0.7-2.0) mmol/L Calcium (8.4-10.2) mg/dL Total Bilirubin (0.2-1.3) mg/dL AST (17-59) U/L ALT (4-49) U/L Alkaline Phosphatase (38-126) U/L Total Protein (6.3-8.2) g/dL Albumin (3.5-5.0) g/dL Amylase (30-110) U/L Lipase (23-300) U/L Urine Color Yellow Urine Appearance Clear (Clear) Urine pH 6.0 (5.0-8.0) Ur Specific [place] 1.027 (1.001-1.035) Urine Protein Trace H (Negative) Urine Glucose (UA) Negative (Negative) Urine Ketones Trace H (Negative) Urine Blood Negative (Negative) Urine Nitrite Negative (Negative) Urine Bilirubin Negative (Negative) Urine Urobilinogen <2.0 (<2.0) mg/dL Ur Leukocyte Esterase Negative (Negative) Disposition <Tra Casillas - Last Filed: 08/31/24 16:41> Is patient prescribed a controlled substance at d/c from ED?: Yes If prescribed controlled substance>3 days was MAPS reviewed?: Prescribed <3 Days Time of Disposition: 20:28 <Ron Cleary - Last Filed: 08/31/24 20:28> Clinical Impression: Diaphragmatic hernia Disposition: HOME SELF-CARE Condition: Fair Instructions (If sedation given, give patient instructions): Abdominal Pain (ED) Prescriptions: HYDROcodone/APAP 5-325MG [[place] 5-325] 1 tab PO Q6HR PRN 3 Days #12 tab PRN Reason: Severe Pain Referrals: Anna Rolilns DO [Doctor of Osteopathic Medicine] - 1-2 days
[2024-08-31 17:16] LABS: ALT 29 U/L (4-49); AST 33 U/L (17-59); African American GFR (CKD) >90 (>60 ml/min/1.73 sqM); Albumin 4.9 g/dL (3.5-5.0); Alkaline Phosphatase 87 U/L (38-126); Amylase 40 U/L (30-110); Anion Gap 9 mmol/L; Blood Urea Nitrogen 20 mg/dL (9-20); Calcium 9.8 mg/dL (8.4-10.2); Carbon Dioxide 24 mmol/L (22-30); Chloride 105 mmol/L (98-107); Glucose 81 mg/dL (74-99); Lipase 173 U/L (23-300); Non-African American GFR(CKD) 82 (>60 ml/min/1.73 sqM); Potassium 4.6 mmol/L (3.5-5.1); Sodium 138 mmol/L (137-145); Total Bilirubin 0.8 mg/dL (0.2-1.3); Total Protein 7.6 g/dL (6.3-8.2)
[2024-08-31 17:18] LABS: Platelet Count 180 10*3/uL (140-440)
[2024-08-31 18:28] VITALS: TEMP 98.3
[2024-08-31 18:46] LABS: Appearance,Urine Clear (Clear); Bilirubin,Urine Negative (Negative); Blood,Urine Negative (Negative); Color,Urine Yellow; Glucose,Urine (UA) Negative (Negative); Ketones,Urine Trace (Negative); Leukocyte Esterase,Urine Negative (Negative); Nitrite,Urine Negative (Negative); Protein,Urine Trace (Negative); Specific Gravity,Urine 1.027 (1.001-1.035); Urobilinogen,Urine <2.0 mg/dL (<2.0)
--- NOTE | 2024-08-31 19:36 | CT ---
03/07/2020 EXAMINATION TYPE: CT abdomen pelvis w con DATE OF EXAM: 08/31/2024 7:11 PM COMPARISON: 09/23/2018 CLINICAL INDICATION: Male, 54 years old with history of abdominal pain, sent by urgent care for herni a, abdominal pain TECHNIQUE: Axial images were obtained from above the diaphragm to the pubic rami in the axial plane a t 5 mm thick sections. Reconstructed images are reviewed on the computer in the coronal plane. CONTRAST: 100 mL of Isovue 300. Study performed without Oral Contrast DLP: 2218.3 mGycm, Automated exposure control for dose reduction was used. FINDINGS: Limited CT sections are obtained the lung bases. The lung bases are clear. CT ABDOMEN: Anterior abdominal wall periumbilical hernia containing mesenteric fat with an opening 1. 7 cm. No loops of bowel are involved. This is new from comparison Liver: Normal Spleen: Normal Pancreas: Normal Adrenal glands: The adrenal glands are normal. Gallbladder: Surgically. Kidneys: No masses are evident. No hydronephrosis is present. No cysts are present. Delayed images were obtained through the kidneys, which remain unremarkable. Aorta: Vascular calcification is within the aorta. Inferior vena cava: Normal. CT PELVIS: Loops of bowel within the abdomen and pelvis are normal. This study is without oral contrast limi ting bowel evaluation. Appendix: Normal as visualized. Urinary bladder: Decompressed with limited evaluation Genitourinary structures: Prostate is prominent Osseous structures: No suspicious lytic or sclerotic lesions. IMPRESSION: 1. Small mesenteric fat-containing periumbilical hernia. Correlate for incarcerated fat. No loops of bowel are involved [facility], , 08/31/2024 7:33 PM
[2024-08-31 20:44] VITALS: BP 142/95; PULSE 76; RESP 18
== END 2024-08-31 20:48 | disposition home or self-care (01) ==
LOC: EC 15:52
DX: K44.9 Diaphragmatic hernia without obstruction or gangrene (principal); Z88.0 Allergy status to penicillin; Z88.5 Allergy status to narcotic agent
CPT/HCPCS: 36415; 93005; 80053; 82150; 83605; 83690; 85025; 81003; 74177; 99284; Q9967

== ENCOUNTER → 2024-09-13 | Outpatient (CLI) | payer BC ==
--- NOTE | 2024-09-13 10:12 | CT ---
EXAMINATION TYPE: CT chest w con DATE OF EXAM: 09/13/2024 9:56 AM COMPARISON: None. CLINICAL INDICATION: Male, 54 years old with history of K44 DIAPHRAGMATIC HERNIA WITH OBSTRUCTION, WI THOUT, diaphragmatic hernia, TECHNIQUE: CT scan of the chest is performed with IV Contrast, patient injected with 100 mL of Isovue 300. CT DLP: 717 mGycm, Automated exposure control for dose reduction was used. FINDINGS: LUNGS: Large eventration left hemidiaphragm containing portion of the splenic flexure spleen and stom ach. Right hemidiaphragm is in normal position. Diaphragm on the left extends to the level of the lef t hilum. Left basilar parenchymal scarring or atelectasis seen. The lungs are grossly clear, there is no concerning parenchymal mass or nodule identified. There is no pleural effusion or pneumothorax seen. The tracheobronchial tree is patent. MEDIASTINUM: There are no greater than 1 cm hilar or mediastinal lymph nodes. No pericardial effusi on is seen. Thoracic aorta is of normal caliber. HEART: Size within normal limits. No significant coronary artery calcifications. UPPER ABDOMEN: No significant abnormality appreciated. OTHER: No additional significant abnormality is seen. IMPRESSION: Large eventration left hemidiaphragm containing portion of the splenic flexure spleen and stomach. Ri ght hemidiaphragm is in normal position. Diaphragm on the left extends to the level of the left hilum . Left basilar parenchymal scarring or atelectasis seen. [facility], , 09/13/2024 10:10 AM
== END | disposition home or self-care (01) ==
LOC: RADCTMAIN 09:20
PROVIDERS: ATTEND Surgery
DX: K44.0 Diaphragmatic hernia with obstruction, without gangrene (principal); J98.11 Atelectasis
CPT/HCPCS: 71260; Q9967